=== PATIENT | male | born 1985 | race Two or more races ===

== ENCOUNTER 2020-05-06 16:53 | Inpatient (IN) | payer SELFPAY ==
[~2020-05-06] VITALS: Ht 167.6 cm; Wt 98.2 kg
[2020-05-06 16:38] VITALS: BP 122/78
[2020-05-06] MEDS ORDERED: Morphine Sulfate 2mg/ml Inj(IV/IM USE ONLY) IVP ONE (17:30)
[2020-05-06 17:44] LABS: BASOPHILS % (AUTO) 0.3 % (0.0-2.0); HEMATOCRIT 48.1 % (42.0-52.0); HEMOGLOBIN 16.1 G/DL (14.2-18.0); LYMPHOCYTES % (AUTO) 25.7 % (20.0-45.0); MEAN CORPUSCULAR VOLUME 85 FL (80-99); MONOCYTES % (AUTO) 9.1 % (1.0-10.0); NEUTROPHILS % (AUTO) 64.9 % (45.0-75.0); PLATELET COUNT 154 K/UL (150-450); RED BLOOD COUNT 5.65 M/UL (4.70-6.10); RED CELL DISTRIBUTION WIDTH 11.8 % (11.6-14.8)
[2020-05-06] MEDS ORDERED: cefTRIAXone 1 GM in NS 55 ML IVPB ONE (17:45)
[2020-05-06] MEDS ORDERED: Azithromycin 500 MG in NS 275 ML IV ONE (17:45)
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
[2020-05-06 18:02] LABS: ANION GAP 13 mmol/L (5-15); BLOOD UREA NITROGEN 9 mg/dL (7-18); CALCIUM 8.2 MG/DL (8.5-10.1); CARBON DIOXIDE 26 MMOL/L (21-32); CHLORIDE 102 MMOL/L (98-107); CREATININE 1.1 MG/DL (0.55-1.30); POTASSIUM 3.4 MMOL/L (3.5-5.1); SODIUM 141 MMOL/L (136-145)
[2020-05-06 18:04] VITALS: BP 130/69
[2020-05-06 18:19] LABS: ALANINE AMINOTRANSFERASE 60 U/L (12-78); ALBUMIN 4.2 G/DL (3.4-5.0); ALKALINE PHOSPHATASE 53 U/L (46-116); ASPARTATE AMINO TRANSFERASE 60 U/L (15-37); BILIRUBIN,TOTAL 0.5 MG/DL (0.2-1.0); CKMB 0.9 NG/ML (0.0-3.6); CREATINE KINASE 649 U/L (26-308); FERRITIN 784 NG/ML (8-388)
[2020-05-06 19:53] LABS: APPEARANCE,URINE CLEAR; BILIRUBIN, URINE NEGATIVE (NEGATIVE); GLUCOSE, URINE (UA) NEGATIVE (NEGATIVE); KETONES,URINE 4+ (NEGATIVE); LEUKOCYTE ESTERASE ,URINE NEGATIVE (NEGATIVE); NITRITE,URINE NEGATIVE (NEGATIVE); PH,URINE 5 (4.5-8.0); PROTEIN,URINE 2+ (NEGATIVE); UROBILINOGEN,URINE 1 MG/DL (0.0-1.0)
[2020-05-06 19:54] LABS: COLOR,URINE YELLOW
[2020-05-06 21:15] VITALS: BP 122/70
[2020-05-06 21:45] VITALS: BP 128/65
[2020-05-07] VITALS (7 sets, daily range): BP systolic 113–134; BP diastolic 62–92
[2020-05-07 06:39] LABS: ANION GAP 8 mmol/L (5-15); BLOOD UREA NITROGEN 10 mg/dL (7-18); CALCIUM 7.8 MG/DL (8.5-10.1); CARBON DIOXIDE 29 MMOL/L (21-32); CHLORIDE 105 MMOL/L (98-107); CREATININE 0.9 MG/DL (0.55-1.30); POTASSIUM 4.3 MMOL/L (3.5-5.1); SODIUM 141 MMOL/L (136-145)
[2020-05-07] MEDS ORDERED: Enoxaparin 40mg Inj SUBQ SCH (09:00)
[2020-05-07] MEDS ORDERED: Zinc Sulfate 220mg ORAL SCH (09:00)
[2020-05-07] MEDS ORDERED: cefTRIAXone 1 GM in D5W 55 ML IVPB SCH (11:00)
--- NOTE | 2020-05-07 13:04 | Diagnostic Imaging Report ---
Indication: Shortness of breath Technique: One view of the chest Comparison: 06/20/2014 Findings: There is a patchy infiltrate at the right lung base. The remainder the lungs and pleural spaces are clear. The heart size is normal Impression: Right lateral basilar infiltrate, possibly pneumonia. Correlate with clinical findings
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
[2020-05-08] VITALS: BP 123/67
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
[2020-05-08 04:00] VITALS: BP 118/68
[2020-05-08 08:00] VITALS: BP 130/75
[2020-05-08] MEDS: Zinc Sulfate 220mg ORAL SCH (08:30)
[2020-05-08] MEDS ORDERED: Enoxaparin 40mg Inj SUBQ SCH (09:00)
[2020-05-08] MEDS ORDERED: cefTRIAXone 1 GM in D5W 55 ML IVPB SCH (11:00)
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
[2020-05-08 12:00] VITALS: BP 125/67
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
--- NOTE | 2020-05-08 15:07 | Diagnostic Imaging Report ---
Indication: Abnormal chest sounds Technique: One view of the chest Comparison: 05/06/2020 Findings: Suboptimal inspiration Interim marked worsening of bilateral infiltrates, particularly on the right and also on the left. The heart size is upper limits normal. Impression: Markedly worsened bilateral infiltrates, likely pneumonia, quite possibly viral.
[2020-05-08 16:00] VITALS: BP 128/68
[2020-05-08] MEDS ORDERED: Loading Dose:Remdesivir 200mg/NS 210ml IV SCH ×2 (16:00)
[2020-05-08] MEDS ORDERED: Remdesivir Fact Sheet MISC SCH (16:00)
[2020-05-08] MEDS ORDERED: IV Preparation Fee MISC PRN (16:00)
[2020-05-08] MEDS: Enoxaparin 60mg Inj SUBQ SCH (17:31)
[2020-05-08 20:00] VITALS: BP 130/73
[2020-05-09] VITALS: BP 129/76
[2020-05-09 06:11] LABS: BASOPHILS % (AUTO) 0.2 % (0.0-2.0); HEMATOCRIT 45.1 % (42.0-52.0); HEMOGLOBIN 14.9 G/DL (14.2-18.0); LYMPHOCYTES % (AUTO) 12.8 % (20.0-45.0); MEAN CORPUSCULAR VOLUME 86 FL (80-99); MONOCYTES % (AUTO) 5.7 % (1.0-10.0); NEUTROPHILS % (AUTO) 81.3 % (45.0-75.0); PLATELET COUNT 203 K/UL (150-450); RED BLOOD COUNT 5.26 M/UL (4.70-6.10); RED CELL DISTRIBUTION WIDTH 11.6 % (11.6-14.8); WHITE BLOOD COUNT 8.6 K/UL (4.8-10.8)
[2020-05-09 06:29] LABS: ALANINE AMINOTRANSFERASE 46 U/L (12-78); ALBUMIN 3.1 G/DL (3.4-5.0); ALBUMIN/GLOBULIN RATIO 0.7 (1.0-2.7); ALKALINE PHOSPHATASE 45 U/L (46-116); ANION GAP 13 mmol/L (5-15); ASPARTATE AMINO TRANSFERASE 26 U/L (15-37); BILIRUBIN,TOTAL 0.4 MG/DL (0.2-1.0); BLOOD UREA NITROGEN 10 mg/dL (7-18); CALCIUM 8.1 MG/DL (8.5-10.1); CARBON DIOXIDE 23 MMOL/L (21-32); CHLORIDE 104 MMOL/L (98-107); CREATININE 0.9 MG/DL (0.55-1.30); POTASSIUM 3.5 MMOL/L (3.5-5.1); SODIUM 140 MMOL/L (136-145)
[2020-05-09 08:00] VITALS: BP 133/78
[2020-05-09] MEDS: Zinc Sulfate 220mg ORAL SCH (09:42)
[2020-05-09] MEDS: Enoxaparin 60mg Inj SUBQ SCH ×2 (09:42→20:44)
[2020-05-09] MEDS: HYDROcodone/Acetamin 5/325 tab ORAL PRN ×2 (09:44→18:47)
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
[2020-05-09 12:00] VITALS: BP 122/69
[2020-05-09] MEDS: Maintenance Dose:Remdesivir 100mg/NS 230ml x 4 Doses IV SCH ×2 (15:59)
[2020-05-09 16:00] VITALS: BP 137/79
[2020-05-09 20:00] VITALS: BP 125/77
[2020-05-10] VITALS: BP 117/70
[2020-05-10 04:00] VITALS: BP 121/68
[2020-05-10 06:38] LABS: BASOPHILS % (AUTO) 0.2 % (0.0-2.0); EOSINOPHILS % (AUTO) 0.1 % (0.0-3.0); HEMOGLOBIN 15.1 G/DL (14.2-18.0); LYMPHOCYTES % (AUTO) 17.3 % (20.0-45.0); MEAN CORPUSCULAR VOLUME 85 FL (80-99); MONOCYTES % (AUTO) 8.9 % (1.0-10.0); NEUTROPHILS % (AUTO) 73.6 % (45.0-75.0); PLATELET COUNT 228 K/UL (150-450); RED BLOOD COUNT 5.31 M/UL (4.70-6.10); RED CELL DISTRIBUTION WIDTH 11.4 % (11.6-14.8); WHITE BLOOD COUNT 6.3 K/UL (4.8-10.8)
[2020-05-10 06:51] LABS: ALANINE AMINOTRANSFERASE 51 U/L (12-78); ALBUMIN/GLOBULIN RATIO 0.8 (1.0-2.7); ALKALINE PHOSPHATASE 41 U/L (46-116); ANION GAP 12 mmol/L (5-15); ASPARTATE AMINO TRANSFERASE 25 U/L (15-37); BILIRUBIN,DIRECT 0.1 MG/DL (0.0-0.3); BILIRUBIN,TOTAL 0.5 MG/DL (0.2-1.0); BLOOD UREA NITROGEN 12 mg/dL (7-18); CALCIUM 8.9 MG/DL (8.5-10.1); CARBON DIOXIDE 23 MMOL/L (21-32); CHLORIDE 107 MMOL/L (98-107); CREATININE 0.7 MG/DL (0.55-1.30); POTASSIUM 3.9 MMOL/L (3.5-5.1); SODIUM 142 MMOL/L (136-145)
--- NOTE | 2020-05-10 07:37 | General Progress Note ---
Assessment/Plan Problem List: (1) 2019 novel coronavirus disease (COVID-19) ICD Codes: U07.1 - COVID-19 SNOMED: 932489671 Status: stable, progressing Assessment/Plan: cont current rx remdesivir rx o2 as needed Subjective ROS Limited/Unobtainable: No Constitutional: Reports: no symptoms HEENT: Reports: no symptoms Cardiovascular: Reports: no symptoms Respiratory: Reports: no symptoms Gastrointestinal/Abdominal: Reports: no symptoms Genitourinary: Reports: no symptoms Neurologic/Psychiatric: Reports: no symptoms Endocrine: Reports: no symptoms Hematologic/Lymphatic: Reports: no symptoms Allergies: Coded Allergies: No Known Allergies (Unverified , 06/20/14) All Systems: reviewed and negative except above Subjective stable off o2. on remdesivir. cp/sob Objective Last 24 Hour Vital Signs Date Time Temp Pulse Resp B/P (MAP) Pulse Ox O2 Delivery O2 Flow Rate FiO2 05/10/20 04:00 98.6 64 19 121/68 (85) 94 05/10/20 00:00 98.1 62 19 117/70 (86) 94 05/09/20 21:00 Room Air 05/09/20 20:00 98.2 66 20 125/77 (93) 95 05/09/20 16:00 98.3 78 18 137/79 (98) 98 05/09/20 12:00 97.5 75 20 122/69 (86) 95 05/09/20 09:00 Nasal Cannula 2.0 05/09/20 08:00 98.4 75 18 133/78 (96) 97 Intake and Output 05/09/20 05/10/20 19:00 07:00 Intake Total 1200 ml 2025 ml Output Total 1150 ml Balance 1200 ml 875 ml Intake Oral 1200 ml 1200 ml IV Total 825 ml Output Urine Total 1150 ml # Voids 6 # Bowel Movements 1 Laboratory Tests 05/10/20 05:38: White Blood Count 6.3, Red Blood Count 5.31, Hemoglobin 15.1, Hematocrit 45.0, Mean Corpuscular Volume 85, Mean Corpuscular Hemoglobin 28.4, Mean Corpuscular Hemoglobin Concent 33.5, Red Cell Distribution Width 11.4L, Platelet Count 228, Mean Platelet Volume 6.5, Neutrophils (%) (Auto) 73.6, Lymphocytes (%) (Auto) 17.3L, Monocytes (%) (Auto) 8.9, Eosinophils (%) (Auto) 0.1, Basophils (%) (Auto ) 0.2, Sodium Level 142, Potassium Level 3.9, Chloride Level 107, Carbon Dioxide Level 23, Anion Gap 12, Blood Urea Nitrogen 12, Creatinine 0.7, Estimat Glomerular Filtration Rate > 60, Glucose Level 131H, Calcium Level 8.9, Total Bilirubin 0.5, Direct Bilirubin 0.1, Aspartate Amino Transf (AST/SGOT) 25, Alanine Aminotransferase (ALT/SGPT) 51, Alkaline Phosphatase 41L, Total Protein 7.0, Albumin 3.0L, Globulin 4.0, Albumin/Globulin Ratio 0.8L Height (Feet): 5 Height (Inches): 6.00 Weight (Pounds): 215 General Appearance: WD/WN Cardiovascular: regular rhythm Respiratory/Chest: lungs clear Abdomen: soft Edema: no edema noted Arm (L), no edema noted Arm (R), no edema noted Leg (L), no edema noted Leg (R), no edema noted Pedal (L), no edema noted Pedal (R), no edema noted Generalized Kolby Caballero MD May 10, 2020 07:37
[2020-05-10 08:00] VITALS: BP 120/73
[2020-05-10] MEDS: Zinc Sulfate 220mg ORAL SCH (08:46)
[2020-05-10] MEDS: Enoxaparin 60mg Inj SUBQ SCH ×2 (08:47→20:30)
[2020-05-10 12:00] VITALS: BP 120/70
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
[2020-05-10 16:00] VITALS: BP 124/78
[2020-05-10] MEDS: Maintenance Dose:Remdesivir 100mg/NS 230ml x 4 Doses IV SCH ×2 (16:03)
[2020-05-10 20:00] VITALS: BP_SYST 118; BP_SYST 119; BP_DIAS 71; BP_DIAS 79
[2020-05-11 04:00] VITALS: BP 118/76
[2020-05-11 07:08] LABS: BASOPHILS % (AUTO) 0.1 % (0.0-2.0); HEMATOCRIT 46.1 % (42.0-52.0); HEMOGLOBIN 15.4 G/DL (14.2-18.0); LYMPHOCYTES % (AUTO) 19.6 % (20.0-45.0); MEAN CORPUSCULAR VOLUME 85 FL (80-99); MONOCYTES % (AUTO) 10.5 % (1.0-10.0); NEUTROPHILS % (AUTO) 69.7 % (45.0-75.0); PLATELET COUNT 275 K/UL (150-450); RED BLOOD COUNT 5.45 M/UL (4.70-6.10); RED CELL DISTRIBUTION WIDTH 11.3 % (11.6-14.8); WHITE BLOOD COUNT 6.4 K/UL (4.8-10.8)
[2020-05-11 07:51] LABS: ALANINE AMINOTRANSFERASE 55 U/L (12-78); ALBUMIN/GLOBULIN RATIO 0.8 (1.0-2.7); ALKALINE PHOSPHATASE 36 U/L (46-116); ANION GAP 9 mmol/L (5-15); ASPARTATE AMINO TRANSFERASE 28 U/L (15-37); BILIRUBIN,DIRECT 0.1 MG/DL (0.0-0.3); BILIRUBIN,TOTAL 0.5 MG/DL (0.2-1.0); BLOOD UREA NITROGEN 14 mg/dL (7-18); CALCIUM 8.6 MG/DL (8.5-10.1); CARBON DIOXIDE 25 MMOL/L (21-32); CHLORIDE 107 MMOL/L (98-107); CREATININE 0.9 MG/DL (0.55-1.30); POTASSIUM 3.7 MMOL/L (3.5-5.1); SODIUM 141 MMOL/L (136-145)
[2020-05-11 08:00] VITALS: BP 105/59
[2020-05-11] MEDS: Enoxaparin 60mg Inj SUBQ SCH ×2 (09:28→20:42)
--- NOTE | 2020-05-11 09:29 | General Progress Note ---
Assessment/Plan Problem List: (1) 2019 novel coronavirus disease (COVID-19) ICD Codes: U07.1 - COVID-19 SNOMED: 781733398 Status: stable, progressing Assessment/Plan: cont current rx remdesivir rx o2 as needed Subjective ROS Limited/Unobtainable: No Constitutional: Reports: malaise, weakness HEENT: Reports: no symptoms Cardiovascular: Reports: no symptoms Respiratory: Reports: no symptoms Gastrointestinal/Abdominal: Reports: no symptoms Genitourinary: Reports: no symptoms Neurologic/Psychiatric: Reports: no symptoms Endocrine: Reports: no symptoms Hematologic/Lymphatic: Reports: no symptoms Allergies: Coded Allergies: No Known Allergies (Unverified , 06/20/14) All Systems: reviewed and negative except above Subjective stable off o2. on remdesivir. cp/sob Objective Last 24 Hour Vital Signs Date Time Temp Pulse Resp B/P (MAP) Pulse Ox O2 Delivery O2 Flow Rate FiO2 05/11/20 08:00 97.3 59 19 105/59 (74) 94 05/11/20 04:00 97.9 62 20 118/76 (90) 95 05/10/20 20:11 Room Air 05/10/20 20:00 98.1 70 20 119/71 (87) 94 05/10/20 17:24 98.2 05/10/20 16:00 98.2 58 20 124/78 (93) 94 05/10/20 12:00 97.9 62 20 120/70 (87) 94 Intake and Output 05/10/20 05/11/20 19:00 07:00 Intake Total 3150 ml 2300 ml Balance 3150 ml 2300 ml Intake Oral 1250 ml 1400 ml IV Total 1900 ml 900 ml # Voids 5 Laboratory Tests 05/11/20 04:10: White Blood Count 6.4, Red Blood Count 5.45, Hemoglobin 15.4, Hematocrit 46.1, Mean Corpuscular Volume 85, Mean Corpuscular Hemoglobin 28.2, Mean Corpuscular Hemoglobin Concent 33.4, Red Cell Distribution Width 11.3L, Platelet Count 275, Mean Platelet Volume 6.2L, Neutrophils (%) (Auto) 69.7, Lymphocytes (%) (Auto) 19.6L, Monocytes (%) (Auto) 10.5H, Eosinophils (%) (Auto) 0.0, Basophils (%) ( Auto) 0.1, Sodium Level 141, Potassium Level 3.7, Chloride Level 107, Carbon Dioxide Level 25, Anion Gap 9, Blood Urea Nitrogen 14, Creatinine 0.9, Estimat Glomerular Filtration Rate > 60, Glucose Level 114H, Calcium Level 8.6, Total Bilirubin 0.5, Direct Bilirubin 0.1, Aspartate Amino Transf (AST/SGOT) 28, Alanine Aminotransferase (ALT/SGPT) 55, Alkaline Phosphatase 36L, Total Protein 6.9, Albumin 3.0L, Globulin 3.9, Albumin/Globulin Ratio 0.8L Height (Feet): 5 Height (Inches): 6.00 Weight (Pounds): 215 Objective deferred due to covid positive status Kolby Caballero MD May 11, 2020 09:29
[2020-05-11] MEDS: Zinc Sulfate 220mg ORAL SCH (09:44)
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
[2020-05-11 12:00] VITALS: BP 109/64
[2020-05-11] MEDS: Maintenance Dose:Remdesivir 100mg/NS 230ml x 4 Doses IV SCH ×2 (15:40)
[2020-05-11 16:00] VITALS: BP 119/63
[2020-05-11 20:00] VITALS: BP 124/75
[2020-05-12] VITALS: BP 121/78
[2020-05-12 04:00] VITALS: BP 106/67
[2020-05-12 06:29] LABS: ALANINE AMINOTRANSFERASE 96 U/L (12-78); ALBUMIN 3.1 G/DL (3.4-5.0); ALBUMIN/GLOBULIN RATIO 0.8 (1.0-2.7); ALKALINE PHOSPHATASE 37 U/L (46-116); ANION GAP 9 mmol/L (5-15); ASPARTATE AMINO TRANSFERASE 52 U/L (15-37); BILIRUBIN,TOTAL 0.4 MG/DL (0.2-1.0); BLOOD UREA NITROGEN 18 mg/dL (7-18); CALCIUM 8.8 MG/DL (8.5-10.1); CARBON DIOXIDE 24 MMOL/L (21-32); CHLORIDE 109 MMOL/L (98-107); CREATININE 0.8 MG/DL (0.55-1.30); POTASSIUM 3.8 MMOL/L (3.5-5.1); SODIUM 142 MMOL/L (136-145)
[2020-05-12 08:00] VITALS: BP 110/62
[2020-05-12 08:25] LABS: BASOPHILS % (AUTO) 0.3 % (0.0-2.0); EOSINOPHILS % (AUTO) 0.1 % (0.0-3.0); HEMATOCRIT 47.3 % (42.0-52.0); HEMOGLOBIN 15.7 G/DL (14.2-18.0); LYMPHOCYTES % (AUTO) 26.3 % (20.0-45.0); MEAN CORPUSCULAR VOLUME 85 FL (80-99); MONOCYTES % (AUTO) 11.4 % (1.0-10.0); NEUTROPHILS % (AUTO) 61.9 % (45.0-75.0); PLATELET COUNT 311 K/UL (150-450); RED BLOOD COUNT 5.58 M/UL (4.70-6.10); RED CELL DISTRIBUTION WIDTH 11.2 % (11.6-14.8); WHITE BLOOD COUNT 6.7 K/UL (4.8-10.8)
[2020-05-12] MEDS: Enoxaparin 60mg Inj SUBQ SCH ×2 (09:28→20:52)
[2020-05-12] MEDS: Zinc Sulfate 220mg ORAL SCH (09:29)
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
[2020-05-12 12:00] VITALS: BP 103/65
[2020-05-12 16:00] VITALS: BP 106/62
[2020-05-12] MEDS: Maintenance Dose:Remdesivir 100mg/NS 230ml x 4 Doses IV SCH ×2 (16:08)
--- NOTE | 2020-05-12 17:43 | General Progress Note ---
Assessment/Plan Problem List: (1) 2019 novel coronavirus disease (COVID-19) ICD Codes: U07.1 - COVID-19 SNOMED: 095141128 Status: stable, progressing Assessment/Plan: cont current rx remdesivir rx o2 as needed cxr Subjective ROS Limited/Unobtainable: No Constitutional: Reports: malaise, weakness HEENT: Reports: no symptoms Cardiovascular: Reports: no symptoms Respiratory: Reports: no symptoms Gastrointestinal/Abdominal: Reports: no symptoms Genitourinary: Reports: no symptoms Neurologic/Psychiatric: Reports: no symptoms Endocrine: Reports: no symptoms Hematologic/Lymphatic: Reports: no symptoms Allergies: Coded Allergies: No Known Allergies (Unverified , 06/20/14) All Systems: reviewed and negative except above Subjective stable off o2. on remdesivir. cp/sob Objective Last 24 Hour Vital Signs Date Time Temp Pulse Resp B/P (MAP) Pulse Ox O2 Delivery O2 Flow Rate FiO2 05/12/20 16:00 98.1 57 19 106/62 (77) 96 05/12/20 12:00 97.6 66 19 103/65 (78) 97 05/12/20 09:00 Room Air 05/12/20 08:00 98.1 68 18 110/62 (78) 96 05/12/20 04:00 97.4 69 17 106/67 (80) 97 05/12/20 00:00 97.6 69 19 121/78 (92) 96 05/11/20 21:00 Room Air 05/11/20 20:00 97.8 71 18 124/75 (91) 97 Intake and Output 05/11/20 05/12/20 19:00 07:00 Intake Total 3203 ml 1475 ml Output Total 600 ml 1450 ml Balance 2603 ml 25 ml Intake Oral 960 ml 950 ml IV Total 2243 ml 525 ml Output Urine Total 600 ml 1450 ml # Voids 5 3 Laboratory Tests 05/12/20 04:40: Sodium Level 142, Potassium Level 3.8, Chloride Level 109H, Carbon Dioxide Level 24, Anion Gap 9, Blood Urea Nitrogen 18, Creatinine 0.8, Estimat Glomerular Filtration Rate > 60, Glucose Level 130H, Calcium Level 8.8, Total Bilirubin 0.4, Aspartate Amino Transf (AST/SGOT) 52H, Alanine Aminotransferase ( ALT/SGPT) 96H, Alkaline Phosphatase 37L, Total Protein 6.8, Albumin 3.1L, Globulin 3.7, Albumin/Globulin Ratio 0.8L 05/12/20 08:05: White Blood Count 6.7, Red Blood Count 5.58, Hemoglobin 15.7, Hematocrit 47.3, Mean Corpuscular Volume 85, Mean Corpuscular Hemoglobin 28.1, Mean Corpuscular Hemoglobin Concent 33.2, Red Cell Distribution Width 11.2L, Platelet Count 311, Mean Platelet Volume 6.1L, Neutrophils (%) (Auto) 61.9, Lymphocytes (%) (Auto) 26.3, Monocytes (%) (Auto) 11.4H, Eosinophils (%) (Auto) 0.1, Basophils (%) ( Auto) 0.3 Height (Feet): 5 Height (Inches): 6.00 Weight (Pounds): 215 Objective deferred due to covid positive status Kolby Caballero MD May 12, 2020 17:43
[2020-05-12 20:00] VITALS: BP 114/62
[2020-05-13] VITALS: BP 117/64
[2020-05-13 04:00] VITALS: BP 120/59
[2020-05-13 05:53] LABS: BASOPHILS % (AUTO) 0.5 % (0.0-2.0); EOSINOPHILS % (AUTO) 0.1 % (0.0-3.0); HEMOGLOBIN 15.7 G/DL (14.2-18.0); LYMPHOCYTES % (AUTO) 31.8 % (20.0-45.0); MEAN CORPUSCULAR VOLUME 86 FL (80-99); MONOCYTES % (AUTO) 9.2 % (1.0-10.0); NEUTROPHILS % (AUTO) 58.3 % (45.0-75.0); PLATELET COUNT 300 K/UL (150-450); RED BLOOD COUNT 5.56 M/UL (4.70-6.10); RED CELL DISTRIBUTION WIDTH 11.5 % (11.6-14.8); WHITE BLOOD COUNT 5.5 K/UL (4.8-10.8)
[2020-05-13 06:48] LABS: ALANINE AMINOTRANSFERASE 211 U/L (12-78); ALBUMIN/GLOBULIN RATIO 0.8 (1.0-2.7); ALKALINE PHOSPHATASE 34 U/L (46-116); ANION GAP 11 mmol/L (5-15); ASPARTATE AMINO TRANSFERASE 117 U/L (15-37); BILIRUBIN,DIRECT 0.1 MG/DL (0.0-0.3); BILIRUBIN,TOTAL 0.6 MG/DL (0.2-1.0); BLOOD UREA NITROGEN 16 mg/dL (7-18); CALCIUM 8.4 MG/DL (8.5-10.1); CARBON DIOXIDE 24 MMOL/L (21-32); CHLORIDE 107 MMOL/L (98-107); CREATININE 0.8 MG/DL (0.55-1.30); POTASSIUM 3.5 MMOL/L (3.5-5.1); SODIUM 142 MMOL/L (136-145)
[2020-05-13 08:00] VITALS: BP 110/55
[2020-05-13] MEDS: Zinc Sulfate 220mg ORAL SCH (08:24)
[2020-05-13] MEDS: Enoxaparin 60mg Inj SUBQ SCH ×2 (08:30→22:00)
--- NOTE | 2020-05-13 09:58 | General Progress Note ---
Assessment/Plan Problem List: (1) 2019 novel coronavirus disease (COVID-19) ICD Codes: U07.1 - COVID-19 SNOMED: [id number] Status: stable, progressing Assessment/Plan: cont current rx remdesivir rx o2 as needed cxr Subjective ROS Limited/Unobtainable: No Constitutional: Reports: no symptoms HEENT: Reports: no symptoms Cardiovascular: Reports: no symptoms Respiratory: Reports: no symptoms Gastrointestinal/Abdominal: Reports: no symptoms Genitourinary: Reports: no symptoms Neurologic/Psychiatric: Reports: no symptoms Endocrine: Reports: no symptoms Hematologic/Lymphatic: Reports: no symptoms Allergies: Coded Allergies: No Known Allergies (Unverified , 06/20/14) All Systems: reviewed and negative except above Subjective stable off o2. on remdesivir. cp/sob Objective Last 24 Hour Vital Signs Date Time Temp Pulse Resp B/P (MAP) Pulse Ox O2 Delivery O2 Flow Rate FiO2 05/13/20 04:00 97.6 62 17 120/59 (79) 96 05/13/20 00:00 97.8 59 18 117/64 (81) 96 05/12/20 21:00 Room Air 05/12/20 20:00 98.0 60 19 114/62 (79) 96 05/12/20 16:00 98.1 57 19 106/62 (77) 96 05/12/20 12:00 97.6 66 19 103/65 (78) 97 Intake and Output 05/12/20 05/13/20 19:00 07:00 Intake Total 1035 ml 1562 ml Output Total 700 ml 1450 ml Balance 335 ml 112 ml Intake Oral 960 ml 740 ml IV Total 75 ml 822 ml Output Urine Total 700 ml 1450 ml # Voids 5 3 Laboratory Tests 05/13/20 04:00: White Blood Count 5.5, Red Blood Count 5.56, Hemoglobin 15.7, Hematocrit 48.0, Mean Corpuscular Volume 86, Mean Corpuscular Hemoglobin 28.3, Mean Corpuscular Hemoglobin Concent 32.8, Red Cell Distribution Width 11.5L, Platelet Count 300, Mean Platelet Volume 6.3L, Neutrophils (%) (Auto) 58.3, Lymphocytes (%) (Auto) 31.8, Monocytes (%) (Auto) 9.2, Eosinophils (%) (Auto) 0.1, Basophils (%) (Auto ) 0.5, Sodium Level 142, Potassium Level 3.5, Chloride Level 107, Carbon Dioxide Level 24, Anion Gap 11, Blood Urea Nitrogen 16, Creatinine 0.8, Estimat Glomerular Filtration Rate > 60, Glucose Level 96, Calcium Level 8.4L, Total Bilirubin 0.6, Direct Bilirubin 0.1, Aspartate Amino Transf (AST/SGOT) 117H, Alanine Aminotransferase (ALT/SGPT) 211H, Alkaline Phosphatase 34L, Total Protein 6.6, Albumin 3.0L, Globulin 3.6, Albumin/Globulin Ratio 0.8L Height (Feet): 5 Height (Inches): 6.00 Weight (Pounds): 216 Objective deferred due to covid positive status Kolby Caballero MD May 13, 2020 09:58
--- NOTE | 2020-05-13 10:30 | Diagnostic Imaging Report ---
Procedure: XRAY Chest 1v Reason for study: Shortness of breath. Comparison films: 05/08/2020. FINDINGS: A single one view chest is obtained. Vascularity is normal. There is near complete resolution of previously noted infiltrates. Some minimal linear densities remain in the lateral right lung base. Cardiac and mediastinal silhouette are within normal limits. CP angles are sharp. The bony thorax appear unremarkable. IMPRESSION: Much improved infiltrates with minimal residual densities lateral right lung base.
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
[2020-05-13 12:00] VITALS: BP 112/66
[2020-05-13 16:00] VITALS: BP 108/50
[2020-05-13 20:00] VITALS: BP 122/63
[2020-05-14 04:00] VITALS: BP 106/65
[2020-05-14 08:00] VITALS: BP 110/63
[2020-05-14] MEDS: Enoxaparin 60mg Inj SUBQ SCH ×2 (09:08→20:24)
[2020-05-14] MEDS: Zinc Sulfate 220mg ORAL SCH (09:10)
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
[2020-05-14 12:00] VITALS: BP_SYST 119; BP_SYST 147; BP_DIAS 65
--- NOTE | 2020-05-14 14:06 | General Progress Note ---
Assessment/Plan Problem List: (1) 2019 novel coronavirus disease (COVID-19) ICD Codes: U07.1 - COVID-19 SNOMED: 933352055 Status: stable, progressing Assessment/Plan: cont current rx remdesivir rx completed cont steroids o2 as needed cxr much improved dc planning tomorrow Subjective ROS Limited/Unobtainable: No Constitutional: Reports: malaise, weakness HEENT: Reports: no symptoms Cardiovascular: Reports: no symptoms Respiratory: Reports: no symptoms Gastrointestinal/Abdominal: Reports: no symptoms Genitourinary: Reports: no symptoms Neurologic/Psychiatric: Reports: no symptoms Endocrine: Reports: no symptoms Hematologic/Lymphatic: Reports: no symptoms Allergies: Coded Allergies: No Known Allergies (Unverified , 06/20/14) All Systems: reviewed and negative except above Subjective stable off o2. on remdesivir. cp/sob Objective Last 24 Hour Vital Signs Date Time Temp Pulse Resp B/P (MAP) Pulse Ox O2 Delivery O2 Flow Rate FiO2 05/14/20 12:00 98.1 61 20 147/65 (92) 94 05/14/20 09:00 Room Air 05/14/20 08:00 98.1 63 18 110/63 (79) 96 05/14/20 04:00 97.7 50 17 106/65 (79) 95 05/13/20 21:00 Room Air 05/13/20 20:00 98.1 58 17 122/63 (82) 95 05/13/20 16:00 97.9 57 19 108/50 (69) 97 Intake and Output 05/13/20 05/14/20 19:00 07:00 Intake Total 1075 ml 675 ml Balance 1075 ml 675 ml Intake Oral 1000 ml IV Total 75 ml 675 ml # Voids 3 3 Height (Feet): 5 Height (Inches): 6.00 Weight (Pounds): 216 Objective deferred due to covid positive status Kolby Caballero MD May 14, 2020 14:06
[2020-05-14 16:00] VITALS: BP 108/62
[2020-05-14 20:00] VITALS: BP 115/74
[2020-05-15] VITALS: BP 122/68
[2020-05-15 04:00] VITALS: BP 108/67
[2020-05-15 08:00] VITALS: BP 118/68
[2020-05-15] MEDS: Zinc Sulfate 220mg ORAL SCH (08:11)
[2020-05-15] MEDS: Enoxaparin 60mg Inj SUBQ SCH (08:13)
--- NOTE | 2020-05-15 08:34 | General Progress Note ---
Assessment/Plan Problem List: (1) 2019 novel coronavirus disease (COVID-19) ICD Codes: U07.1 - COVID-19 SNOMED: 502664314 Status: stable, progressing Assessment/Plan: cont current rx cont steroids o2 as needed cxr much improved dc planning today no isolation needed per ID Subjective ROS Limited/Unobtainable: No Constitutional: Reports: no symptoms HEENT: Reports: no symptoms Cardiovascular: Reports: no symptoms Respiratory: Reports: no symptoms Gastrointestinal/Abdominal: Reports: no symptoms Genitourinary: Reports: no symptoms Neurologic/Psychiatric: Reports: no symptoms Endocrine: Reports: no symptoms Hematologic/Lymphatic: Reports: no symptoms Allergies: Coded Allergies: No Known Allergies (Unverified , 06/20/14) All Systems: reviewed and negative except above Subjective stable off o2. completed remdesivir. cp/sob Objective Last 24 Hour Vital Signs Date Time Temp Pulse Resp B/P (MAP) Pulse Ox O2 Delivery O2 Flow Rate FiO2 05/15/20 08:00 98.1 49 18 118/68 (85) 95 05/15/20 04:00 97.7 53 16 108/67 (81) 97 05/15/20 00:00 98.0 53 19 122/68 (86) 96 05/14/20 21:01 Room Air 05/14/20 20:00 99.0 67 18 115/74 (88) 95 05/14/20 16:00 98.1 58 18 108/62 (77) 95 05/14/20 12:00 98.1 58 18 119/65 (83) 95 05/14/20 09:00 Room Air Intake and Output 05/14/20 05/15/20 19:00 07:00 Intake Total 1900 ml 1000 ml Balance 1900 ml 1000 ml Intake Oral 1000 ml 250 ml IV Total 900 ml 750 ml # Voids 4 2 # Bowel Movements 2 Height (Feet): 5 Height (Inches): 6.00 Weight (Pounds): 216 Objective deferred due to covid positive status Kolby Caballero MD May 15, 2020 08:33
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
== END 2020-05-15 10:35 | disposition home or self-care (01) | DRG 177 ==
LOC: EDBD 16:53 → EMR 17:00 → EDBEDREQ 17:16 → 2E 19:50 → EDBEDREQ 20:52 → 2E 21:28 → 4E 05-07 13:48
DX: U07.1 COVID-19 (principal); J12.89 Other viral pneumonia; M54.5 Low back pain; V89.2XXS Person injured in unspecified motor-vehicle accident, traffic, sequela
CPT/HCPCS: 36415; 36600; 71045; 80048; 80053; 80307; 81003; 82248; 82550; 82553; 82728; 82803; 83605; 83615; 83735; 83880; 84484; 85025; 85379; 85610; 85730; 86140; 87040; 93005; 96361; 96365; 96368; 96375; 99291; J2405; J7030; J8499; U0002